=== PATIENT | female | born 1945 | race American Indian/Alaskan Native ===

== ENCOUNTER 2016-12-08 14:03 | Emergency (ER) | payer MEDICARE ==
[2016-12-08 14:16] VITALS: BMI 23.3
[2016-12-08 14:19] VITALS: BP 154/92; PULSE 75; RESP 16; TEMP 97.9; O2SAT 97
--- NOTE | 2016-12-08 15:12 | ED PDOC ---
Arrival/HPI - General Historian: Patient - History of Present Illness Time/Duration: < week Symptom Onset: Sudden Symptom Course: Unchanged <Candelario Parker - Last Filed: 12/08/16 18:19> <Rebeca Mattson - Last Filed: 12/08/16 20:58> - General Chief Complaint: Upper Extremity Problem/Injury Time Seen by Provider: 12/08/16 14:10 - History of Present Illness Narrative History of Present Illness (Text): 12/08/16 15:15 70 y/o female presenting s/p left 2nd digit trauma. Patient states a car door was closed on her left index finger 6 days ago. Patient states the finger is extremely painful with limited ROM. She states the pain and swelling has progressively worsened since the injury. She denies any other injuries including head or spine trauma. Patient denies fever or chills. (Candelario Parker) Past Medical History - Provider Review Nursing Documentation Reviewed: Yes - Infectious Disease Hx of Infectious Diseases: None - Cardiac Hx Cardiac Disorders: Yes Hx Hypertension: Yes - Pulmonary Hx Respiratory Disorders: Yes Hx Chronic Obstructive Pulmonary Disease (COPD): Yes - Neurological Hx Neurological Disorder: Yes Hx Alzheimer's Disease: Yes Hx Transient Ischemic Attacks (TIA): Yes (5 yrs ago) - HEENT Hx HEENT Disorder: Yes ([place] uses hearing aids, eyeglasses) - Renal Hx Renal Disorder: No - Endocrine/Metabolic Hx Endocrine Disorders: No - Hematological/Oncological Hx Blood Disorders: No - Integumentary Hx Dermatological Disorder: No - Musculoskeletal/Rheumatological Hx Musculoskeletal Disorders: Yes Hx Arthritis: Yes - Gastrointestinal Hx Gastrointestinal Disorders: No - Genitourinary/Gynecological Hx Genitourinary Disorders: No - Psychiatric Hx Psychophysiologic Disorder: No Hx Substance Use: No <Candelario Parker - Last Filed: 12/08/16 18:19> Family/Social History - Physician Review Nursing Documentation Reviewed: Yes Family/Social History: Unknown Family HX Smoking Status: Never Smoked Hx Alcohol Use: No Hx Substance Use: No <Candelario Parker - Last Filed: 12/08/16 18:19> Allergies/Home Meds <Candelario Parker - Last Filed: 12/08/16 18:19> <Rebeca Mattson - Last Filed: 12/08/16 20:58> Allergies/Adverse Reactions: Allergies Unobtainable Allergy (Verified 12/08/16 14:16) Review of Systems - Physician Review All systems were reviewed & negative as marked: Yes - Review of Systems Musculoskeletal: Other (traumatic injury to left distal finger ) Skin: absent: Skin Lesions, Laceration <Candelario Parker - Last Filed: 12/08/16 18:19> Physical Exam Vital Signs Reviewed: Yes Temperature: Afebrile Blood Pressure: Normal Pulse: Regular Respiratory Rate: Normal Appearance: Positive for: Well-Appearing Pain Distress: None Mental Status: Positive for: Alert and Oriented X 3 - Systems Exam Head: Present: Atraumatic, Normocephalic Pupils: Present: PERRL Extroacular Muscles: Present: EOMI Conjunctiva: Present: Normal Mouth: Present: Moist Mucous Membranes Pharnyx: Present: Normal Neck: Present: Normal Range of Motion Respiratory/Chest: Present: Clear to Auscultation, Good Air Exchange. No: Respiratory Distress Cardiovascular: Present: Regular Rate and Rhythm, Normal S1, S2 Abdomen: Present: Tenderness, Normal Bowel Sounds. No: Distention Upper Extremity: Present: Other (deformed, medically deviated, tender DIP joint left 2nd digit ). No: Cyanosis, Edema Lower Extremity: Present: Normal Inspection, Edema Neurological: Present: GCS=15, CN II-XII Intact Skin: Present: Warm, Dry. No: Rashes Psychiatric: Present: Alert, Oriented x 3, Normal Insight, Normal Concentration <Candelario Parker - Last Filed: 12/08/16 18:19> Vital Signs Temp Pulse Resp BP Pulse Ox 12/08/16 14:18 97.9 F 75 16 154/92 H 97 Medical Decision Making <Candelario Parker - Last Filed: 12/08/16 18:19> <Rebeca Mattson Y - Last Filed: 12/08/16 20:58> ED Course and Treatment: 12/08/16 15:13 70 y/o female presenting s/p trauma to left distal 2nd digit. PIP joint is medially deviated with tenderness and subungal hematoma. Will r/o fracture vs ligamentous injury. - will xray hand - reassess (Candelario Parker) 12/08/16 20:56 subungual hematoma drained without complication. L hand-second digit-neurologically intact. radial pulse 2+. normal color and normal Rom. dc home w keflex her primary doctro dr clancy made aware of plan and needs wound check in 2 days. transportation arranged for pt 12/08/16 20:57 12/08/16 20:58 (Rebeca Mattson) - RAD Interpretation Radiology Orders: 12/08/16 15:24 HAND LEFT 2ND DIGIT (FINGER) [RAD] Stat - Medication Orders Current Medication Orders: Discontinued Medications Acetaminophen (Tylenol 325mg Tab) 650 mg PO STAT STA Stop: 12/08/16 15:53 Last Admin: 12/08/16 16:24 Dose: 650 MG MAR Pain/Vitals Document 12/08/16 16:24 SE (Rec: 12/08/16 16:24 SE [id number]) Pain Reassessment Is This A Pain ReAssessment? No Sleep Is patient sleeping during reassessment? No Presence of Pain Presence of Pain Yes Cephalexin Monohydrate (Keflex) 500 mg PO STAT STA PRN Reason: Protocol Stop: 12/08/16 18:00 Last Admin: 12/08/16 18:37 Dose: 500 MG Disposition/Present on Arrival - Present on Arrival Any Indicators Present on Arrival: No History of DVT/PE: No History of Uncontrolled Diabetes: No Urinary Catheter: No History of Decub. Ulcer: No History Surgical Site Infection Following: None - Disposition Have Diagnosis and Disposition been Completed?: Yes Disposition Time: 18:19 <Candelario Parker - Last Filed: 12/08/16 18:19> - Present on Arrival Any Indicators Present on Arrival: No History of DVT/PE: No History of Uncontrolled Diabetes: No Urinary Catheter: No History of Decub. Ulcer: No - Disposition Have Diagnosis and Disposition been Completed?: Yes Disposition Time: 15:20 Patient Plan: Discharge <TwilaRebeca Nguyen - Last Filed: 12/08/16 20:58> - Disposition Diagnosis: Subungual hematoma of finger of left hand Disposition: HOME/ ROUTINE Condition: STABLE Discharge Instructions (ExitCare): Crush Injury (ED) Additional Instructions: Please see your family doctor within 2 days. You are given a new antibiotic called Keflex. Please take 1 table twice a day for 7 days. If your symptoms worsen please call your family physician or come to the emergency room. Prescriptions: Cephalexin [Keflex] 500 mg PO Q12 #14 capsule Acetaminophen [Tylenol 325mg tab] 650 mg PO Q6H PRN #20 tab PRN Reason: mild pain Referrals: Parish Clancy MD [Primary Care Provider] - Follow up with primary Lani Espinoza MD [Staff Provider] - Follow up with primary
--- NOTE | 2016-12-08 16:13 | RAD ---
PROCEDURE: Left 2nd digit dated 12/09/2015 PA view of the left hand and 2 additional cone-down views left 2nd finger performed. HISTORY: injury COMPARISON: None. FINDINGS: BONES: The current study reveals no definitive radiographic evidence of acute displaced fracture nor dislocation. The osseous structures appear intact. Moderate degenerate changes DIP joint 2nd finger consistent with primary osteoarthritis with marginal osteophyte formation. There is also slight ulnar subluxation of the distal phalanx. There also mild degenerative changes of the DIP joint left thumb and to a lesser degree remaining 3rd 4th and 5th fingers. JOINTS: Normal. No osteoarthritic changes. SOFT TISSUES: Normal. OTHER FINDINGS: None. IMPRESSION: Primary osteoarthritis changes of the DIP joints most notably affecting the 2nd and to a lesser degree 1st and less so the remaining digits. No acute fracture seen.
== END 2016-12-08 18:40 | disposition home or self-care (01) ==
LOC: ED 14:03
DX: S60.022A Contusion of left index finger without damage to nail, initial encounter (principal); W22.8XXA Striking against or struck by other objects, initial encounter; I10 Essential (primary) hypertension

== ENCOUNTER 2018-03-21 13:43 | Inpatient (IN) | payer MEDICARE ==
[2018-03-21 14:38] VITALS: BMI 22.8
--- NOTE | 2018-03-21 15:44 | ED PDOC ---
"Arrival/HPI - General Chief Complaint: Altered Mental Status Time Seen by Provider: 03/21/18 15:01 Historian: Patient, Family - History of Present Illness Narrative History of Present Illness (Text): 03/21/18 15:53 72yr old female presents today brought in by her [facility] friend after having outpatient MRI and outpatient EEG. Patient with a history of dementia was scheduled today for outpatient MRI and EEG by her neurologist for further evaluation of her dementia. Patient's friend states that she last saw the patient well last night at 7 PM and today she noticed she was a little drowsy but took her to her outpatient MRI and EEG appointments. After those appointments were completed she brought the patient into emergency room for evaluation of her lethargy. pt denies any pain. pt denies headaches. pt states she feels tired. pt denies abdominal pain. no fever/chills. no other complaints. Past Medical History - Provider Review Nursing Documentation Reviewed: Yes - Travel History Have you recently traveled outside [place] w/in the past 3 mons?: No - Infectious Disease Hx of Infectious Diseases: None - Cardiac Hx Cardiac Disorders: Yes Hx Hypertension: Yes - Pulmonary Hx Respiratory Disorders: Yes Hx Chronic Obstructive Pulmonary Disease (COPD): Yes - Neurological Hx Neurological Disorder: Yes Hx Alzheimer's Disease: Yes Hx Transient Ischemic Attacks (TIA): Yes (5 yrs ago) - HEENT Hx HEENT Disorder: Yes ([facility] uses hearing aids, eyeglasses) - Renal Hx Renal Disorder: No - Endocrine/Metabolic Hx Endocrine Disorders: No - Hematological/Oncological Hx Blood Disorders: No - Integumentary Hx Dermatological Disorder: No - Musculoskeletal/Rheumatological Hx Musculoskeletal Disorders: Yes Hx Arthritis: Yes - Gastrointestinal Hx Gastrointestinal Disorders: No - Genitourinary/Gynecological Hx Genitourinary Disorders: No - Psychiatric Hx Psychophysiologic Disorder: No Hx Substance Use: No - Anesthesia Hx Anesthesia: No (unknown) Family/Social History - Physician Review Nursing Documentation Reviewed: Yes Family/Social History: Unknown Family HX Smoking Status: Never Smoked Hx Alcohol Use: No Hx Substance Use: No Allergies/Home Meds Allergies/Adverse Reactions: Allergies No Known Allergies Allergy (Verified 03/21/18 14:40) Home Medications: Home Meds Medication Instructions Recorded Confirmed Metoprolol Succinate XL [Toprol XL] 25 mg PO DAILY 07/18/17 03/21/18 Pravastatin Sodium [Pravachol] 40 mg PO DAILY 07/18/17 07/18/17 amLODIPine [Norvasc] 5 mg PO DAILY 07/18/17 07/18/17 Albuterol 0.5% Inhal Antonieta (2.5 03/21/18 mg/0.5 ml) UD Anoro Ellipta 62.5-25 Mcg INH 62.5 inh INH DAILY 03/21/18 03/21/18 Aspirin 81 mg PO DAILY 03/21/18 03/21/18 Calcium 600 + Vit D Tablet 600 mg PO BID 03/21/18 03/21/18 Exelon 9.5 mg/24 hr Patch 9.5 patch TOP DAILY 03/21/18 03/21/18 Ferrous Sulfate 240 mg PO DAILY 03/21/18 03/21/18 Namenda Xr 28 mg PO DAILY 03/21/18 03/21/18 Nasonex 50 mcg BID 03/21/18 03/21/18 Nexium 40 mg PO DAILY 03/21/18 03/21/18 Review of Systems - Review of Systems Constitutional: Fatigue. absent: Fevers Respiratory: absent: SOB, Cough Cardiovascular: absent: Chest Pain, Palpitations Gastrointestinal: absent: Abdominal Pain, Nausea, Vomiting Genitourinary Female: absent: Dysuria, Frequency, Hematuria Musculoskeletal: absent: Arthralgias, Back Pain, Neck Pain Skin: absent: Rash, Pruritis Neurological: absent: Headache, Dizziness Psychiatric: absent: Anxiety, Depression Physical Exam Vital Signs Reviewed: Yes Vital Signs Temp Pulse Resp BP Pulse Ox 03/21/18 19:33 98.9 F 69 18 99 03/21/18 14:40 78 18 99 03/21/18 14:33 99.0 F 76 18 121/74 98 Temperature: Afebrile Blood Pressure: Normal Pulse: Regular Respiratory Rate: Normal Appearance: Positive for: Well-Appearing, Non-Toxic, Comfortable Pain Distress: None Mental Status: Positive for: Lethargic, other (alert) Finger Stick Blood Glucose: 102 - Systems Exam Head: Present: Atraumatic Mouth: Present: Moist Mucous Membranes Neck: Present: Normal Range of Motion Respiratory/Chest: Present: Clear to Auscultation, Good Air Exchange. No: Respiratory Distress, Accessory Muscle Use Cardiovascular: Present: Regular Rate and Rhythm, Normal S1, S2. No: Murmurs Abdomen: No: Tenderness, Distention, Peritoneal Signs, Rebound, Guarding Back: Present: Normal Inspection Upper Extremity: Present: Normal Inspection, Normal ROM Lower Extremity: Present: Normal Inspection, Normal ROM Neurological: Present: GCS=15, Speech Normal Skin: Present: Warm, Dry, Normal Color. No: Rashes Psychiatric: Present: Alert, Lethargic Medical Decision Making ED Course and Treatment: pt is alert but drowsy; stable vitals. denies any complaints. pt last know well at 7Pm last night. pt had outpatient MRI -FINDINGS: HEMORRHAGE: None DWI: There are 2 small foci of restricted diffusion in the right cerebellar hemisphere. BRAIN PARENCHYMA: There are severe chronic microangiopathic changes. There is subtle FLAIR signal abnormality corresponding to the foci of restricted diffusion in the right cerebellar hemisphere. There is an old lacunar infarction in the left cerebellar hemisphere. There is no mass, mass effect or abnormal extra-axial fluid collection. The midline sagittal structures are normal. VENTRICLES: There is mild age-related global parenchymal volume loss and proportionate enlargement of the ventricles and cortical sulci. There is a cavum septum pellucidum. CRANIUM: There is normal bone marrow signal pattern. There is mild hyperostosis frontalis interna. ORBITS: Grossly unremarkable. PARANASAL SINUSES/MASTOIDS: There is moderate polypoid mucosal thickening in the left sphenoid chamber. VASCULAR SYSTEM: There are normal signal voids in the larger intracranial arteries. OTHER FINDINGS: None. IMPRESSION: 1. Two small foci of acute infarction in the right cerebellar hemisphere. 2. Old lacunar infarction in the left cerebellar hemisphere. 3. Severe chronic microangiopathic changes and mild age-related global parenchymal volume loss. 03/21/18 15:35 baseline stroke score; 3. pt seen and evaluated by IMM. code stroke called. 03/21/18 15:[address] Rivers will given ASA and add MRA of head and neck and NOT cta due to questionable history of renal problems. NS at 100cc/hr and monitor BP. cbc: wnl cmp: wnl INR; trop: wnl UA + nitrates, + leukocytes EKG: Normal sinus rhythm at 77 bpm normal axis normal intervals no ST elevations blood and urine cultures pending. case was discussed with dr. wyatt the patients neurologist. will keep dr. Rivers on consult. pt started on rocephin for UTI. pt of dr. demarcus clancy; case discussed with dr. londono; accepts admission to tele for stroke and UTI impression; stroke, UTI admit to tele. 03/21/18 20:07 pt did not have MRA of head and neck as MRI was unavailable; i spoke again with dr. rivers. advised him of normal GFR; he advised changing exam to CTA of head and neck. 03/22/18 00:33 cta head and neck; FINDINGS: Right internal carotid artery: Calcific plaque at the intracranial ICAs without significant hemodynamic compromise. Intracranial segment is patent with no significant stenosis. No aneurysm. Right anterior cerebral artery: Unremarkable. No occlusion or significant stenosis. No aneurysm. Right middle cerebral artery: Unremarkable. No occlusion or significant stenosis. No aneurysm. Right posterior cerebral artery: Unremarkable. No occlusion or significant stenosis. No aneurysm. Right vertebral artery: Unremarkable as visualized. Left internal carotid artery: See above. Left anterior cerebral artery: Unremarkable. No occlusion or significant stenosis. No aneurysm. Left middle cerebral artery: Unremarkable. No occlusion or significant stenosis. No aneurysm. Left posterior cerebral artery: Unremarkable. No occlusion or significant stenosis. No aneurysm. Left vertebral artery: Unremarkable as visualized. [facility] | Preliminary Radiology Report Page 2 of 3 Basilar artery: Unremarkable as visualized. IMPRESSION: No high-grade stenosis, occlusion, thromboembolic disease, or aneurysm involving the intracranial arterial vasculature. EXAM: CT Angiography Neck With Intravenous Contrast CLINICAL HISTORY: 72 years old, female; Signs and symptoms; Weakness; Additional info: Stroke TECHNIQUE: Axial computed tomographic angiography images of the neck with intravenous contrast using CT angiography protocol. All CT scans at this facility use at least one of these dose optimization techniques: automated exposure control; mA and/or kV adjustment per patient size (includes targeted exams where dose is matched to clinical indication); or iterative reconstruction. MIP reconstructed images were created and reviewed. Coronal and sagittal reformatted images were created and reviewed. CONTRAST: 100 mL of OMNI 350 administered intravenously. 100 mL of OMNI 350 administered intravenously. COMPARISON: CT - HEAD W/O CONTRAST 2017-07-18 13:28 FINDINGS: VASCULATURE: Right common carotid artery: Unremarkable. No significant stenosis. No dissection or occlusion. Right internal carotid artery: Calcific plaque at the carotid bulbs without significant hemodynamic compromise. Extracranial segment is patent with no significant stenosis. No dissection or occlusion. Right external carotid artery: Unremarkable. No occlusion. Right vertebral artery: Unremarkable. No significant stenosis. No dissection or occlusion. Left common carotid artery: Unremarkable. No significant stenosis. No dissection or occlusion. Left internal carotid artery: See above. Left external carotid artery: Unremarkable. No occlusion. Left vertebral artery: Calcified plaque at the origin of the left vertebral artery results in mild focal stenosis. No dissection or occlusion. NECK: Bones/joints: No acute fracture. No dislocation. Soft tissues: Unremarkable as visualized. Heart: Extensive coronary artery calcifications. CAROTID STENOSIS REFERENCE USING NASCET CRITERIA: % ICA stenosis = (1 - narrowest ICA diameter/diameter of distal cervical ICA) x 100. Mild - <50% stenosis. Moderate - 50-69% stenosis. Severe - 70-94% stenosis. Near occlusion - 95-99% stenosis. Occluded - 100% stenosis. IMPRESSION: No high-grade stenosis, occlusion, or dissection involving the cervical arterial vasculature. - Lab Interpretations Lab Results: 03/21/18 15:45 03/21/18 15:45 Lab Results 03/21/18 17:11: Urine Color Yellow, Urine Appearance Clear, Urine pH 6.5, Ur Specific [place] 1.015, Urine Protein Negative, Urine Glucose (UA) Negative, Urine Ketones Negative, Urine Blood Trace-intact H, Urine Nitrate Positive H, Urine Bilirubin Negative, Urine Urobilinogen 0.2, Ur Leukocyte Esterase Trace H , Urine RBC 5 - 10, Urine WBC 5 - 10, Ur Epithelial Cells 10 - 12 03/21/18 15:45: Hemoglobin A1c 6.0 03/21/18 15:45: pO2 56 H, VBG pH 7.37, VBG pCO2 42.0, VBG HCO3 24.3, VBG Total CO2 25.6, VBG O2 Sat (Calc) 93.2 H, VBG Base Excess -1.1 L, VBG Potassium 3.9, Sodium 146.0, Chloride 115.0 H, Glucose 103, Lactate 0.8, FiO2 21.0, Venous Blood Potassium 3.9 03/21/18 15:45: PT 13.3 H, INR 1.16 H, APTT 24.6 L 03/21/18 15:45: WBC 6.9 D, RBC 4.56, Hgb 14.6, Hct 43.2, MCV 94.7, MCH 32.0, MCHC 33.8, RDW 13.9, Plt Count 158, MPV 9.7, Gran % 52.3, Lymph % (Auto) 37.6 H , [place] % (Auto) 9.3 H, Eos % (Auto) 0.4 L, Baso % (Auto) 0.4, Gran # 3.59, Lymph # (Auto) 2.6, [place] # (Auto) 0.6, Eos # (Auto) 0.0, Baso # (Auto) 0.03 03/21/18 15:45: Sodium 151 H, Chloride 114 H, Potassium 3.9, Carbon Dioxide 24, Anion Gap 17, BUN 22 H, Creatinine 0.8, Est GFR ( Amer) > 60, Est GFR ( Non-Af Amer) > 60, Random Glucose 100, Calcium 9.7, Total Bilirubin 0.7, AST 40 H, ALT 42, Alkaline Phosphatase 114, Lactate Dehydrogenase 633, Total Creatine Kinase 70, Troponin I < 0.01, Total Protein 7.5, Albumin 4.4, Globulin 3.1, Albumin/Globulin Ratio 1.4, Triglycerides 75, Cholesterol 160, LDL Cholesterol Direct 74, HDL Cholesterol 69 H - RAD Interpretation Radiology Orders: 03/21/18 15:09 CHEST PORTABLE [RAD] Stat - Medication Orders Current Medication Orders: Acetaminophen (Tylenol 325mg Tab) 325 mg PO Q6 PRN PRN Reason: Pain, Mild (1-3) Amlodipine Besylate (Norvasc) 5 mg PO DAILY [facility] Aspirin (Aspirin Chewable) 81 mg PO DAILY [facility] Famotidine (Pepcid) 20 mg IVP Q12 ABI Last Admin: 03/21/18 21:33 Dose: 20 mg IVP Administration Document 03/21/18 21:33 [facility] (Rec: 03/21/18 21:33 [facility] [id number]) Charges for Administration # of IVP Administrations 1 Sodium Chloride (Sodium Chloride 0.9%) 1,000 mls @ 100 mls/hr IV .Q10H ABI Last Admin: 03/21/18 16:19 Dose: 100 mls/hr eMAR Start Stop Document 03/21/18 16:19 [email or web address] (Rec: 03/21/18 16:19 [email or web address] [id number]) Intravenous Solution Start Date 03/21/18 Start Time 16:19 End Date 03/21/18 Discontinued Medications Aspirin (Aspirin) 325 mg PO STAT STA Stop: 03/21/18 15:50 Last Admin: 03/21/18 16:12 Dose: 325 mg Ceftriaxone Sodium (Rocephin 1 Gram Ivpb) 1 gm in 100 mls @ 200 mls/hr IVPB STAT STA PRN Reason: Protocol Stop: 03/21/18 18:24 Last Admin: 03/21/18 18:01 Dose: 200 mls/hr eMAR Start Stop Document 03/21/18 18:01 [email or web address] (Rec: 03/21/18 18:05 [email or web address] [id number]) Intravenous Solution Start Date 03/21/18 Start Time 18:05 End Date 03/21/18 NIHSS Scale ([place]) Time Performed: 15:15 - How Severe is the Stoke Baseline Level of Consciousness: 1=Drowsy LOC to Questions: 2=Neither correct LOC to commands: 0=Obeys both correctly Best Gaze: 0=Normal Visual: 0=No visual loss Facial: 0=Normal Motor Arm - Left: 0=No drift Motor Arm - Right: 0=No drift Motor Leg - Left: 0=No drift Motor Leg - Right: 0=No drift Limb Ataxia: 0=Absent Sensory: 0=Normal Best Language: 0=No aphasia Dysarthia: 0=Normal articulation Extinction & Inattention (Neglect): 0=Normal, no object Score: 3 Risk Level: Minor Stroke Risk rTPA Inclusion/Exclusion - Refusal of Treatment Patient Refused Treatment: No - Inclusion Criteria for Altepase Patient is 18 years or Older: Yes The Clinical Diagnosis of Ischemic Stroke That is Causing a Potentially Disabling Neurological Deficit: Yes Time of Onset is Well Established to be Less Than 270 Minute Before Treatment Would Begin: No Risk/Benefit Discussed With Patient/Family Member Present: No Disposition/Present on Arrival - Present on Arrival Any Indicators Present on Arrival: No History of DVT/PE: No History of Uncontrolled Diabetes: No Urinary Catheter: No History of Decub. Ulcer: No History Surgical Site Infection Following: None - Disposition Have Diagnosis and Disposition been Completed?: Yes Diagnosis: Stroke, Urinary tract infection Disposition: HOSPITALIZED Disposition Time: 18:05 Patient Plan: Admission Condition: SERIOUS"
[2018-03-21 16:11] LABS: VENOUS BLOOD GAS BASE EXCESS -1.1 mmol/L (0.0-2.0); VENOUS BLOOD GAS PO2 56 mm/Hg (30-55); VENOUS BLOOD PH 7.37 (7.32-7.43)
[2018-03-21 16:14] LABS: BASO # 0.03 K/mm3 (0.0-2.0); BASO % 0.4 % (0.0-3.0); EOS % 0.4 % (1.5-5.0); GRAN # 3.59 (1.4-6.5); GRAN % 52.3 % (50.0-68.0); HEMOGLOBIN 14.6 g/dL (12.0-16.0); LYMPH # 2.6 (1.2-3.4); LYMPH % 37.6 % (22.0-35.0); MEAN CELL VOLUME 94.7 fl (80.0-105.0); MEAN CORPUSCULAR HGB CONC 33.8 g/dl (31.0-37.0); MEAN PLATELET VOLUME 9.7 fl (7.0-11.0); MONO # 0.6 (0.1-0.6); MONO % 9.3 % (1.0-6.0); RBC 4.56 10^6/uL (3.5-6.1); RED CELL DISTRIBUTION WIDTH 13.9 % (11.5-14.5); WHITE BLOOD COUNT 6.9 10^3/ul (4.5-11.0)
[2018-03-21] MEDS: Sodium Chloride 0.9% 1,000 ML IV SCH (16:19)
[2018-03-21 16:24] LABS: ALB/GLOB RATIO 1.4 (1.1-1.8); ALBUMIN 4.4 g/dL (3.0-4.8); ALT/SGPT 42 U/L (7-56); AST/SGOT 40 U/L (14-36); BLOOD UREA NITROGEN 22 mg/dL (7-21); CALCIUM 9.7 mg/dL (8.4-10.5); GFR AFRICAN-AMERICAN > 60; GFR NON-AFRICAN AMERICAN > 60; HDL CHOLESTEROL 69 mg/dL (29-60)
--- NOTE | 2018-03-21 16:24 | RAD ---
HISTORY: weakness COMPARISON: 07/18/2017 FINDINGS: LUNGS: No active pulmonary disease. PLEURA: No significant pleural effusion identified, no pneumothorax apparent. CARDIOVASCULAR: Probable top-normal heart size OSSEOUS STRUCTURES: No significant abnormalities. VISUALIZED UPPER ABDOMEN: Normal. OTHER FINDINGS: None. IMPRESSION: No active disease. No interval pathology noted.
[2018-03-21 16:42] LABS: INR 1.16 (0.93-1.08); PARTIAL THROMBOPLASTIN TIME 24.6 Seconds (25.1-36.5); PROTHROMBIN TIME 13.3 SECONDS (9.4-12.5)
[2018-03-21 16:55] LABS: LDL CHOLESTEROL 74 mg/dL (0-129)
[2018-03-21 16:58] LABS: TROPONIN I < 0.01 ng/mL
[2018-03-21 17:51] LABS: PH,URINE 6.5 (4.7-8.0); URINE BILIRUBIN NEGATIVE (NEGATIVE); URINE BLOOD TRACE-INTACT (NEGATIVE); URINE GLUCOSE (UA) NEGATIVE (NEGATIVE); URINE LEUKOCYTE ESTERASE TRACE Leu/uL (NEGATIVE); URINE PROTEIN NEGATIVE mg/dL (<30 mg/dL); URINE UROBILINOGEN 0.2 E.U./dL (<1 E.U./dL)
[2018-03-21 17:54] LABS: URINE APPEARANCE CLEAR (CLEAR); URINE COLOR YELLOW (YELLOW)
[2018-03-21] MEDS ORDERED: cefTRIAXone 1 gm 1 GM/100 ML BAG IVPB STA (17:55)
--- NOTE | 2018-03-21 19:19 | CP.PCM.HP ---
<Saw Dudley - Last Filed: 03/21/18 21:05> History of Present Illness - History of Present Illness History of Present Illness: This is a 72 y o female PMhx dementia, HTN, COPD, arthritis, TIA 5 y ago, who was brought in by friend from outpatient MRI and EEG for AMS. Per friend, pt's last known normal was at 7 PM last night, and noticed that pt appeared "drowsy" this morning, but still took her to MRI and EEG (as per neurologist for work-up of dementia). Pt was brought to ED by friend for eval of lethargy. Pt denies musculoskeletal pain, headaches, or abdominal pain. Pt a poor historian due to hx of dementia. Otherwise pt denies any acute complaints. Present on Admission - Present on Admission Any Indicators Present on Admission: No History of DVT/PE: No History of Uncontrolled Diabetes: No Urinary Catheter: No Decubitus Ulcer Present: No History Surgical Site Infection Following: None Review of Systems - Review of Systems Systems not reviewed;Unavailable: Dementia Past Patient History - Infectious Disease Hx of Infectious Diseases: None - Tetanus Immunizations Tetanus Immunization: Unknown - Past Medical History & Family History Past Medical History?: Yes - Past Social History Smoking Status: Never Smoked - CARDIAC Hx Cardiac Disorders: Yes Hx Hypertension: Yes - PULMONARY Hx Respiratory Disorders: Yes Hx Chronic Obstructive Pulmonary Disease (COPD): Yes - NEUROLOGICAL Hx Neurological Disorder: Yes Hx Alzheimer's Disease: Yes Hx Transient Ischemic Attacks (TIA): Yes (5 yrs ago) - HEENT Hx HEENT Problems: Yes ([place] uses hearing aids, eyeglasses) - RENAL Hx Chronic Kidney Disease: No - ENDOCRINE/METABOLIC Hx Endocrine Disorders: No - HEMATOLOGICAL/ONCOLOGICAL Hx Blood Disorders: No - INTEGUMENTARY Hx Dermatological Problems: No - MUSCULOSKELETAL/RHEUMATOLOGICAL Hx Musculoskeletal Disorders: Yes Hx Arthritis: Yes - GASTROINTESTINAL Hx Gastrointestinal Disorders: No - GENITOURINARY/GYNECOLOGICAL Hx Genitourinary Disorders: No - PSYCHIATRIC Hx Psychophysiologic Disorder: No Hx Substance Use: No - SURGICAL HISTORY Hx Surgeries: No - ANESTHESIA Hx Anesthesia: No (unknown) Meds Allergies/Adverse Reactions: Allergies Allergy/AdvReac Type Severity Reaction Status Date / Time No Known Allergies Allergy Verified 03/21/18 14:40 Physical Exam - Constitutional Appears: No Acute Distress, Confused - Head Exam Head Exam: ATRAUMATIC, NORMOCEPHALIC - Eye Exam Eye Exam: EOMI, Normal appearance, PERRL Pupil Exam: NORMAL ACCOMODATION - ENT Exam ENT Exam: Mucous Membranes Moist, Normal Exam, Normal Oropharynx - Neck Exam Neck exam: Positive for: Full Rom, Normal Inspection Additional comments: No carotid bruits auscultated - Respiratory Exam Respiratory Exam: Clear to Auscultation Bilateral, NORMAL BREATHING PATTERN - Cardiovascular Exam Cardiovascular Exam: REGULAR RHYTHM, +S1, +S2 - GI/Abdominal Exam GI & Abdominal Exam: Normal Bowel Sounds, Soft - Extremities Exam Extremities exam: Positive for: normal capillary refill, normal inspection, pedal pulses present - Neurological Exam Neurological exam: Alert, Altered Additional comments: Pt has dementia, unable to cooperate with following commands on neurologic exam , motor and sensory function intact - Psychiatric Exam Psychiatric exam: Flat Affect - Skin Skin Exam: Dry, Intact, Normal Color, Warm Results - Vital Signs Recent Vital Signs: Last Vital Signs Temp 99.0 F 03/21/18 14:33 Pulse 78 03/21/18 14:40 Resp 18 03/21/18 14:40 BP 121/74 03/21/18 14:33 Pulse Ox 99 03/21/18 14:40 - Labs Result Diagrams: 03/21/18 15:45 03/21/18 15:45 - EKG Data EKG Interpreted by: ER Physician EKG shows normal: Sinus rhythm Rate: Normal Assessment & Plan - Assessment and Plan (Free Text) Assessment: 72 y o female PMhx dementia, HTN, COPD, arthritis, TIA 5 y ago, presents to ED with AMS and lethargy, with last known normal 7 PM last night. Code Stroke called in ED. Outpatient MRI revealed 2 small foci of acute infarction in R cerebellar hemisphere, and old lacunar infarction in L cerebellar hemisphere. Pt here for stroke work-up. U/a also demonstrated positive leuk esterase, pt being treated for UTI. Plan: AMS 2/2 to stroke Pt has hx dementia, hx TIA 5 y ago Pt was being w/u by neurologist as outpatient, had MRI and EEG done today Outpatient MRI findings: 2 small foci of acute infarction in the R cerebellar hemisphere, old lacunar infarction in L cerebellar hemisphere Code Stroke called in ED S/p ASA 325 mg in ED C/w ASA 81 mg daily Neurology consulted, f/u recs AM labs pending F/u CT head Fall precautions, neuro checks Pending PT, OT, speech and swallow evals UTI Pos leuk esterase in u/a C/w rocephin tx Monitor vitals Hx HTN BP stable C/w amlodipine 5 mg daily Monitor vitals GI ppx: Pepcid bid DVT ppx: SCDs, pharmacologic tx contraindicated Plan d/w attending Decision To Admit - Pt Status Changed To: Hospital Disposition Of: Inpatient Admission - Admit Certification Admit to Inpatient:: After my assessment, the patient will require hospitalization for at least two midnights. This is because of the severity of symptoms shown, intensity of services needed, and/or the medical risk in this patient being treated as an outpatient. - . Bed Request Type: Telemetry Admitting Physician: Rosalva Womack <Rosalva Womack - Last Filed: 03/23/18 06:47> Results - Vital Signs Recent Vital Signs: Last Vital Signs Temp 97.6 F 03/23/18 06:00 Pulse 82 03/23/18 06:00 Resp 18 03/23/18 06:00 BP 115/71 03/23/18 06:00 Pulse Ox 98 03/23/18 06:00 - Labs Result Diagrams: 03/22/18 06:00 03/22/18 06:00 Labs: Laboratory Results - last 24 hr 03/21/18 03/22/18 03/22/18 20:18 06:00 06:00 PT 13.8 H INR 1.20 H APTT 26.1 Sodium Potassium Chloride Carbon Dioxide Anion Gap BUN Creatinine Est GFR ( Amer) Est GFR (Non-Af Amer) POC Glucose (mg/dL) Random Glucose Calcium Phosphorus Magnesium Triglycerides Cholesterol LDL Cholesterol Direct HDL Cholesterol Vitamin B12 348 Urine Color Urine Appearance Urine pH Ur Specific [place] Urine Protein Urine Glucose (UA) Urine Ketones Urine Blood Urine Nitrate Urine Bilirubin Urine Urobilinogen Ur Leukocyte Esterase Urine RBC Urine WBC Ur Epithelial Cells Urine Bacteria Blood Type Confirm O NEGATIVE 03/22/18 03/22/18 03/22/18 06:00 07:10 07:30 PT INR APTT Sodium 147 Potassium 3.6 Chloride 114 H Carbon Dioxide 23 Anion Gap 14 BUN 14 Creatinine 0.7 Est GFR ( Amer) > 60 Est GFR (Non-Af Amer) > 60 POC Glucose (mg/dL) 84 Random Glucose 97 Calcium 8.9 Phosphorus 3.1 Magnesium 2.1 Triglycerides 58 Cholesterol 150 LDL Cholesterol Direct 76 HDL Cholesterol 53 Vitamin B12 Urine Color Urine Appearance Urine pH Ur Specific [place] Urine Protein Urine Glucose (UA) Urine Ketones Urine Blood Urine Nitrate Urine Bilirubin Urine Urobilinogen Ur Leukocyte Esterase Urine RBC Urine WBC Ur Epithelial Cells Urine Bacteria Blood Type Confirm 03/22/18 03/22/18 03/22/18 11:03 16:04 21:16 PT INR APTT Sodium Potassium Chloride Carbon Dioxide Anion Gap BUN Creatinine Est GFR ( Amer) Est GFR (Non-Af Amer) POC Glucose (mg/dL) 103 101 98 Random Glucose Calcium Phosphorus Magnesium Triglycerides Cholesterol LDL Cholesterol Direct HDL Cholesterol Vitamin B12 Urine Color Urine Appearance Urine pH Ur Specific Red[place] Urine Protein Urine Glucose (UA) Urine Ketones Urine Blood Urine Nitrate Urine Bilirubin Urine Urobilinogen Ur Leukocyte Esterase Urine RBC Urine WBC Ur Epithelial Cells Urine Bacteria Blood Type Confirm 03/23/18 06:10 PT INR APTT Sodium Potassium Chloride Carbon Dioxide Anion Gap BUN Creatinine Est GFR ( Amer) Est GFR (Non-Af Amer) POC Glucose (mg/dL) Random Glucose Calcium Phosphorus Magnesium Triglycerides Cholesterol LDL Cholesterol Direct HDL Cholesterol Vitamin B12 Urine Color Yellow Urine Appearance Clear Urine pH 6.5 Ur Specific Red[place] 1.020 Urine Protein Negative Urine Glucose (UA) Negative Urine Ketones Trace H Urine Blood Negative Urine Nitrate Negative Urine Bilirubin Negative Urine Urobilinogen 0.2 Ur Leukocyte Esterase Moderate H Urine RBC 0 - 2 Urine WBC 15 - 20 Ur Epithelial Cells 0 - 2 Urine Bacteria Rare Blood Type Confirm
[2018-03-22] MEDS: Sodium Chloride 0.9% 1,000 ML IV SCH (05:45)
[2018-03-22 06:29] LABS: HEMOGLOBIN 15.6 g/dL (12.0-16.0); MEAN CELL VOLUME 93.9 fl (80.0-105.0); MEAN CORPUSCULAR HEMOGLOBIN 31.9 pg (25.0-35.0); MEAN PLATELET VOLUME 9.7 fl (7.0-11.0); RBC 4.89 10^6/uL (3.5-6.1); RED CELL DISTRIBUTION WIDTH 13.5 % (11.5-14.5); WHITE BLOOD COUNT 5.6 10^3/ul (4.5-11.0)
[2018-03-22 06:46] LABS: INR 1.2 (0.93-1.08); PARTIAL THROMBOPLASTIN TIME 26.1 Seconds (25.1-36.5); PROTHROMBIN TIME 13.8 SECONDS (9.4-12.5)
[2018-03-22 06:57] LABS: LDL CHOLESTEROL 76 mg/dL (0-129)
[2018-03-22 07:04] LABS: BLOOD UREA NITROGEN 14 mg/dL (7-21); CALCIUM 8.9 mg/dL (8.4-10.5); GFR AFRICAN-AMERICAN > 60; GFR NON-AFRICAN AMERICAN > 60; HDL CHOLESTEROL 53 mg/dL (29-60)
--- NOTE | 2018-03-22 07:49 | CARD ---
APPROVED REPORT EKG Measurement Heart [id number] <Conclusion> Normal sinus rhythm Possible Left atrial enlargement Borderline ECG
--- NOTE | 2018-03-22 13:14 | CP.PCM.CON ---
History of Present Illness - History of Present Illness History of Present Illness: Neurology Consultation Note: Mrs. Jiménez is a 72-year-old woman with a past medical history of dementia, HTN, COPD, arthritis, TIA, who was brought in after MRI of the brain for outpatient work-up of encephalopathy revealed a small right cerebellar infarct. The patient's neurologist is Dr. Rehman and he had ordered the MRI and EEG. According to her friend, while she was going to get blood work, she had been increasingly confused and lethargic. She was last known normal at 7 PM the previous night. Labs demonstrated a UTI. I was called for neurological evaluation and recommended aspirin, Lipitor and vascular imaging (CTA of the head/neck), as well as telemetry and echocardiogram. Today, the patient is relatively asymptomatic and is at baseline according to her family. Review of Systems - Review of Systems All systems: reviewed and no additional remarkable complaints except Past Patient History - Infectious Disease Hx of Infectious Diseases: None - Tetanus Immunizations Tetanus Immunization: Unknown - Past Medical History & Family History Past Medical History?: Yes - Past Social History Smoking Status: Never Smoked - CARDIAC Hx Hypertension: Yes - PULMONARY Hx Chronic Obstructive Pulmonary Disease (COPD): Yes - NEUROLOGICAL Hx Neurological Disorder: Yes Hx Alzheimer's Disease: Yes Hx Transient Ischemic Attacks (TIA): Yes (5 yrs ago) - HEENT Hx HEENT Problems: Yes ([place] uses hearing aids, eyeglasses) - RENAL Hx Chronic Kidney Disease: No - ENDOCRINE/METABOLIC Hx Endocrine Disorders: No - HEMATOLOGICAL/ONCOLOGICAL Hx Blood Disorders: No - INTEGUMENTARY Hx Dermatological Problems: No - MUSCULOSKELETAL/RHEUMATOLOGICAL Hx Arthritis: Yes - GASTROINTESTINAL Hx Gastrointestinal Disorders: No - GENITOURINARY/GYNECOLOGICAL Hx Genitourinary Disorders: No - PSYCHIATRIC Hx Psychophysiologic Disorder: No Hx Substance Use: No - SURGICAL HISTORY Hx Surgeries: No - ANESTHESIA Hx Anesthesia: No (unknown) Meds Allergies/Adverse Reactions: Allergies Allergy/AdvReac Type Severity Reaction Status Date / Time No Known Allergies Allergy Verified 03/21/18 14:40 - Medications Medications: Current Medications Acetaminophen (Tylenol 325mg Tab) 325 mg PO Q6 PRN PRN Reason: Pain, Mild (1-3) Amlodipine Besylate (Norvasc) 5 mg PO DAILY [facility] Last Admin: 03/22/18 09:48 Dose: 5 mg Aspirin (Aspirin Chewable) 81 mg PO DAILY [facility] Last Admin: 03/22/18 09:48 Dose: 81 mg Atorvastatin Calcium (Lipitor) 40 mg PO DIN [facility] Famotidine (Pepcid) 20 mg IVP Q12 [facility] Last Admin: 03/22/18 09:48 Dose: 20 mg Sodium Chloride (Sodium Chloride 0.9%) 1,000 mls @ 100 mls/hr IV .Q10H [facility] Last Admin: 03/22/18 05:45 Dose: 100 mls/hr Physical Exam - Neurological Exam Neurological exam: Abnormal Gait, Alert, Altered, CN II-XII Intact, Normal Gait , Reflexes Normal Additional comments: Confused about place and time and does not know her age. No significant nystagmus noted and no ataxia noted. Her strength was symmetrical. Results - Vital Signs Recent Vital Signs: Last Vital Signs Temp 98.0 F 03/22/18 05:55 Pulse 78 03/22/18 09:48 Resp 18 03/22/18 09:00 BP 134/76 03/22/18 09:48 Pulse Ox 98 03/22/18 09:00 - Labs Result Diagrams: 03/22/18 06:00 03/22/18 06:00 Labs: Laboratory Results - last 24 hr 03/21/18 03/21/18 03/21/18 19:08 20:12 20:18 WBC RBC Hgb Hct MCV MCH MCHC RDW Plt Count MPV PT INR APTT Sodium Potassium Chloride Carbon Dioxide Anion Gap BUN Creatinine Est GFR ( Amer) Est GFR (Non-Af Amer) POC Glucose (mg/dL) Random Glucose Calcium Phosphorus Magnesium Triglycerides Cholesterol LDL Cholesterol Direct HDL Cholesterol Vitamin B12 348 TSH 3rd Generation 0.82 Blood Type O NEGATIVE Blood Type Confirm Antibody Screen Negative BBK History Checked No verified bt 03/22/18 03/22/18 03/22/18 06:00 06:00 06:00 WBC 5.6 RBC 4.89 Hgb 15.6 Hct 45.9 MCV 93.9 MCH 31.9 MCHC 34.0 RDW 13.5 Plt Count 126 MPV 9.7 PT 13.8 H INR 1.20 H APTT 26.1 Sodium Potassium Chloride Carbon Dioxide Anion Gap BUN Creatinine Est GFR ( Amer) Est GFR (Non-Af Amer) POC Glucose (mg/dL) Random Glucose Calcium Phosphorus Magnesium Triglycerides Cholesterol LDL Cholesterol Direct HDL Cholesterol Vitamin B12 TSH 3rd Generation Blood Type Blood Type Confirm O NEGATIVE Antibody Screen BBK History Checked 03/22/18 03/22/18 03/22/18 06:00 07:10 07:30 WBC RBC Hgb Hct MCV MCH MCHC RDW Plt Count MPV PT INR APTT Sodium 147 Potassium 3.6 Chloride 114 H Carbon Dioxide 23 Anion Gap 14 BUN 14 Creatinine 0.7 Est GFR ( Amer) > 60 Est GFR (Non-Af Amer) > 60 POC Glucose (mg/dL) 84 Random Glucose 97 Calcium 8.9 Phosphorus 3.1 Magnesium 2.1 Triglycerides 58 Cholesterol 150 LDL Cholesterol Direct 76 HDL Cholesterol 53 Vitamin B12 TSH 3rd Generation Blood Type Blood Type Confirm Antibody Screen BBK History Checked 03/22/18 11:03 WBC RBC Hgb Hct MCV MCH MCHC RDW Plt Count MPV PT INR APTT Sodium Potassium Chloride Carbon Dioxide Anion Gap BUN Creatinine Est GFR ( Amer) Est GFR (Non-Af Amer) POC Glucose (mg/dL) 103 Random Glucose Calcium Phosphorus Magnesium Triglycerides Cholesterol LDL Cholesterol Direct HDL Cholesterol Vitamin B12 TSH 3rd Generation Blood Type Blood Type Confirm Antibody Screen BBK History Checked Assessment & Plan (1) Stroke Assessment and Plan: The symptoms of the stroke were likely exacerbated by the UTI and baseline dementia; however, further work-up is needed. She is improved since the UTI is being treated. I recommend the followin. Telemetry 2. CTA of the head/neck 3. Fluids with NS at 100 mL/hr 4. Aspirin 81 mg daily 5. PT/OT eval and treatment. 6. Echocardiogram 7. Check HbA1c, B12, folate, vitamin D levels, homocysteine levels 8. Case management consult Thank you. Status: Acute Priority: High
--- NOTE | 2018-03-22 13:21 | CP.PCM.PN ---
<Sachin Hand Seven - Last Filed: 03/22/18 13:16> Subjective - Date & Time of Evaluation Date of Evaluation: 03/22/18 Time of Evaluation: 13:17 - Subjective Subjective: Medicine Progress Note: Dr. Hanna Patient seen and examined at bedside. No acute overnight events. Patient is pleasantly confused this morning but denies any complaints. Objective - Vital Signs/Intake and Output Vital Signs (last 24 hours): Temp Pulse Resp BP Pulse Ox 98.0 F 78 18 134/76 98 03/22/18 05:55 03/22/18 09:48 03/22/18 09:00 03/22/18 09:48 03/22/18 09:00 Intake and Output: 03/22/18 03/22/18 06:59 18:59 Intake Total 500 Output Total 0 Balance 500 - Medications Medications: Current Medications Acetaminophen (Tylenol 325mg Tab) 325 mg PO Q6 PRN PRN Reason: Pain, Mild (1-3) Amlodipine Besylate (Norvasc) 5 mg PO DAILY [facility] Last Admin: 03/22/18 09:48 Dose: 5 mg Aspirin (Aspirin Chewable) 81 mg PO DAILY [facility] Last Admin: 03/22/18 09:48 Dose: 81 mg Atorvastatin Calcium (Lipitor) 40 mg PO DIN [facility] Famotidine (Pepcid) 20 mg IVP Q12 [facility] Last Admin: 03/22/18 09:48 Dose: 20 mg Sodium Chloride (Sodium Chloride 0.9%) 1,000 mls @ 100 mls/hr IV .Q10H [facility] Last Admin: 03/22/18 05:45 Dose: 100 mls/hr - Labs Labs: 03/22/18 06:00 03/22/18 06:00 PT 13.8 SECONDS (9.4-12.5) H 03/22/18 06:00 INR 1.20 (0.93-1.08) H 03/22/18 06:00 APTT 26.1 Seconds (25.1-36.5) 03/22/18 06:00 - Constitutional Appears: Well - Head Exam Head Exam: ATRAUMATIC, NORMAL INSPECTION, NORMOCEPHALIC - Eye Exam Eye Exam: EOMI, Normal appearance, PERRL Pupil Exam: NORMAL ACCOMODATION, PERRL - ENT Exam ENT Exam: Mucous Membranes Moist, Normal Exam - Neck Exam Neck Exam: Full ROM, Normal Inspection. absent: Lymphadenopathy - Respiratory Exam Respiratory Exam: Clear to Ausculation Bilateral, NORMAL BREATHING PATTERN - Cardiovascular Exam Cardiovascular Exam: REGULAR RHYTHM, +S1, +S2. absent: Murmur - GI/Abdominal Exam GI & Abdominal Exam: Soft, Normal Bowel Sounds. absent: Tenderness - Extremities Exam Extremities Exam: Full ROM, Normal Capillary Refill, Normal Inspection. absent : Joint Swelling, Pedal Edema - Back Exam Back Exam: NORMAL INSPECTION - Neurological Exam Neurological Exam: Alert, Awake, CN II-XII Intact, Normal Gait, Oriented x3 - Psychiatric Exam Psychiatric exam: Normal Affect, Normal Mood - Skin Skin Exam: Dry, Intact, Normal Color, Warm Assessment and Plan - Assessment and Plan (Free Text) Assessment: 72 y o female PMhx dementia, HTN, COPD, arthritis, TIA 5 y ago, presents to ED with AMS and lethargy, with last known normal 7 PM last night. Code Stroke called in ED. Outpatient MRI revealed 2 small foci of acute infarction in R cerebellar hemisphere, and old lacunar infarction in L cerebellar hemisphere. Pt here for stroke work-up. U/a also demonstrated positive leuk esterase, pt being treated for UTI. Plan: AMS 2/2 to stroke Pt has hx dementia, hx TIA 5 y ago Pt was being w/u by neurologist as outpatient, had MRI and EEG done today Outpatient MRI findings: 2 small foci of acute infarction in the R cerebellar hemisphere, old lacunar infarction in L cerebellar hemisphere Code Stroke called in ED S/p ASA 325 mg in ED C/w ASA 81 mg daily Neurology consulted, f/u recs Fall precautions, neuro checks - Started on lipitor and given HHD today; swallow eval passed UTI Pos leuk esterase in u/a - will treat emprically with rocephin Monitor vitals, no SIRS criteria Hx HTN BP stable C/w amlodipine 5 mg daily Monitor vitals GI ppx: Pepcid bid DVT ppx: SCDs, pharmacologic tx contraindicated <Rolf Hanna - Last Filed: 03/22/18 13:44> Objective - Vital Signs/Intake and Output Vital Signs (last 24 hours): Temp Pulse Resp BP Pulse Ox 97.4 F L 84 20 125/72 98 03/22/18 12:00 03/22/18 12:00 03/22/18 12:00 03/22/18 12:00 03/22/18 09:00 Intake and Output: 03/22/18 03/22/18 06:59 18:59 Intake Total 500 Output Total 0 Balance 500 - Medications Medications: Current Medications Acetaminophen (Tylenol 325mg Tab) 325 mg PO Q6 PRN PRN Reason: Pain, Mild (1-3) Amlodipine Besylate (Norvasc) 5 mg PO DAILY [facility] Last Admin: 03/22/18 09:48 Dose: 5 mg Aspirin (Aspirin Chewable) 81 mg PO DAILY [facility] Last Admin: 03/22/18 09:48 Dose: 81 mg Atorvastatin Calcium (Lipitor) 40 mg PO DIN [facility] Famotidine (Pepcid) 20 mg IVP Q12 [facility] Last Admin: 03/22/18 09:48 Dose: 20 mg Sodium Chloride (Sodium Chloride 0.9%) 1,000 mls @ 100 mls/hr IV .Q10H [facility] Last Admin: 03/22/18 05:45 Dose: 100 mls/hr Ceftriaxone Sodium (Rocephin 1 Gram Ivpb) 1 gm in 100 mls @ 100 mls/hr IVPB DAILY [facility] PRN Reason: Protocol - Labs Labs: 03/22/18 06:00 03/22/18 06:00 PT 13.8 SECONDS (9.4-12.5) H 03/22/18 06:00 INR 1.20 (0.93-1.08) H 03/22/18 06:00 APTT 26.1 Seconds (25.1-36.5) 03/22/18 06:00 Attending/Attestation - Attestation I have personally seen and examined this patient.: Yes I have fully participated in the care of the patient.: Yes I have reviewed all pertinent clinical information, including history, physical exam and plan: Yes Notes (Text): 03/22/18 13:40 72 year old female with past medical history of dementia, hypertension and TIA who presented with AMS. Outpatient MRi was positive for 2 small foci of acute infarct in the right cerebellar hemisphere and old lacunar infarction in the left cerebellar hemisphere. CTA head/neck was done with pending results. Neurology evaluation and PT evaluation are requested. Echocardiogram is pending. Patient is on aspirin and statin. She is on antibiotics for possible UTI while awaiting UCx. Rolf Hanna MD Hospitalist.
[2018-03-22] MEDS: cefTRIAXone 1 gm 1 GM/100 ML BAG IVPB SCH (13:49)
[2018-03-23 06:23] LABS: PH,URINE 6.5 (4.7-8.0); URINE BILIRUBIN NEGATIVE (NEGATIVE); URINE BLOOD NEGATIVE (NEGATIVE); URINE GLUCOSE (UA) NEGATIVE (NEGATIVE); URINE LEUKOCYTE ESTERASE MODERATE Leu/uL (NEGATIVE); URINE PROTEIN NEGATIVE mg/dL (<30 mg/dL); URINE UROBILINOGEN 0.2 E.U./dL (<1 E.U./dL)
[2018-03-23 06:24] LABS: URINE APPEARANCE CLEAR (CLEAR); URINE COLOR YELLOW (YELLOW)
[2018-03-23 06:33] LABS: URINE BACTERIA RARE (NEG); URINE EPITHELIAL CELLS 0 - 2 /hpf (0-5); URINE RBC 0 - 2 /hpf (0-2); URINE WBC 15 - 20 /hpf (0-6)
--- NOTE | 2018-03-23 08:17 | CT ---
PROCEDURE: CT Angiography of the Brain and Neck. HISTORY: stroke COMPARISON: None available. TECHNIQUE: CT angiography of the intracranial and neck arteries was performed. Coronal and sagittal maximum intensity projection reformatted images were generated. Contrast Dose: Omnipaque 350, 100 cc Radiation dose:Total exam DLP = 527.36 mGy-cm. This CT exam was performed using one or more of the following dose reduction techniques: Automated exposure control, adjustment of the mA and/or kV according to patient size, and/or use of iterative reconstruction technique. FINDINGS: INTERNAL CEREBRAL ARTERIES: Atherosclerotic change identified at the bilateral cavernous ICA segments. The skull base, petrous, cavernous and supraclinoid segments are bilaterally widely patent. ANTERIOR CEREBRAL ARTERIES: Unremarkable. A1 and A2 segments are widely patent. Smaller distal branches unremarkable, as visualized. MIDDLE CEREBRAL ARTERIES: Unremarkable. M1 and M2 segments are widely patent. Perisylvian branches grossly symmetric. POSTERIOR CIRCULATION: Basilar Artery: Unremarkable. Distal Vertebral Arteries: Left dominant vertebrobasilar circulation with both distal vertebral arteries patent. Posterior Cerebral Arteries: Patent but hypoplastic left [employer] with normal appearing right [employer]. Posterior Inferior Cerebellar Arteries: Unremarkable. NECK CTA: Common Carotid arteries: The bilateral common carotid appear widely patent from their origins to their bifurcations with no significant stenosis appreciated. Mild atherosclerotic plaque seen at the bilateral carotid bulb regions. No evidence to suggest common carotid artery dissection. Internal Carotid arteries: No significant stenosis is appreciated throughout the cervical internal carotid artery segments bilaterally and there is no evidence of dissection either. External Carotid arteries: Appear unremarkable bilaterally. Vertebral arteries: The bilateral vertebral arteries appear normal in caliber from their origins to their junction with the basilar artery. No significant stenosis or definite pattern of dissection. ANEURYSM/ VASCULAR MALFORMATIONS: None. OTHER FINDINGS: Limited biapical pulmonary fibrosis including calcified pleural plaque. IMPRESSION: No occlusion or significant stenosis in CT Angiography of the Brain and Neck. Limited carotid atherosclerosis as discussed above.
[2018-03-23 08:31] LABS: BASO # 0.01 K/mm3 (0.0-2.0); BASO % 0.1 % (0.0-3.0); EOS # 0.3 (0.0-0.7); EOS % 3.8 % (1.5-5.0); GRAN # 5.77 (1.4-6.5); GRAN % 84.2 % (50.0-68.0); HEMOGLOBIN 16.1 g/dL (12.0-16.0); LYMPH # 0.5 (1.2-3.4); LYMPH % 6.6 % (22.0-35.0); MEAN CORPUSCULAR HEMOGLOBIN 32.1 pg (25.0-35.0); MEAN CORPUSCULAR HGB CONC 35.2 g/dl (31.0-37.0); MEAN PLATELET VOLUME 9.7 fl (7.0-11.0); MONO # 0.4 (0.1-0.6); MONO % 5.3 % (1.0-6.0); RBC 5.02 10^6/uL (3.5-6.1); WHITE BLOOD COUNT 6.9 10^3/ul (4.5-11.0)
[2018-03-23 08:42] LABS: ALB/GLOB RATIO 1.2 (1.1-1.8); ALBUMIN 3.8 g/dL (3.0-4.8); ALT/SGPT 41 U/L (7-56); AST/SGOT 29 U/L (14-36); BLOOD UREA NITROGEN 14 mg/dL (7-21); CALCIUM 9.1 mg/dL (8.4-10.5); GFR AFRICAN-AMERICAN > 60; GFR NON-AFRICAN AMERICAN > 60
[2018-03-23] MEDS: Sodium Chloride 0.9% 1,000 ML IV SCH ×2 (08:59→09:00)
[2018-03-23] MEDS: cefTRIAXone 1 gm 1 GM/100 ML BAG IVPB SCH (09:11)
[2018-03-23] MEDS ORDERED: ANORO ELLIPTA INH SCH (15:00)
[2018-03-23] MEDS ORDERED: NAMENDA 28 MG PO SCH (15:00)
[2018-03-23] MEDS ORDERED: MEMANTINE PO SCH (15:00)
[2018-03-23] MEDS ORDERED: Metoprolol Succinate 25 mg XL Tab PO SCH (15:00)
--- NOTE | 2018-03-23 15:16 | CP.PCM.PN ---
<PeaceSachin - Last Filed: 03/23/18 15:12> Subjective - Date & Time of Evaluation Date of Evaluation: 03/23/18 Time of Evaluation: 15:12 - Subjective Subjective: Medicine progress note for Dr. Hanna: Peace, PGY-2 Patient seen and examined at bedside. Pt became acutely agitated yesterday, resident was paged and ativan was given. This am patient is doing well, but is again pleasantly confused. No acute complaints. Objective - Vital Signs/Intake and Output Vital Signs (last 24 hours): Temp Pulse Resp BP Pulse Ox 97.7 F 80 20 104/69 98 03/23/18 12:00 03/23/18 12:00 03/23/18 12:00 03/23/18 12:00 03/23/18 06:00 Intake and Output: 03/23/18 03/23/18 06:59 18:59 Intake Total 120 50 Output Total 0 400 Balance 120 -350 - Medications Medications: Current Medications Acetaminophen (Tylenol 325mg Tab) 650 mg PO Q6H PRN PRN Reason: Fever >100.4 F Last Admin: 03/22/18 23:58 Dose: 650 mg Acetaminophen (Tylenol 325mg Tab) 650 mg PO Q6H PRN PRN Reason: Pain, Mild (1-3) Amlodipine Besylate (Norvasc) 5 mg PO DAILY [facility] Last Admin: 03/23/18 09:11 Dose: 5 mg Aspirin (Aspirin Chewable) 81 mg PO DAILY [facility] Last Admin: 03/23/18 09:11 Dose: 81 mg Aspirin (Ecotrin) 81 mg PO DAILY [facility] Atorvastatin Calcium (Lipitor) 40 mg PO DIN [facility] Last Admin: 03/22/18 18:23 Dose: Not Given Cefpodoxime Proxetil (Vantin) 200 mg PO Q12 [facility] Stop: 03/27/18 13:31 Famotidine (Pepcid) 20 mg PO Q12 [facility] Metoprolol Succinate (Toprol Xl) 25 mg PO DAILY [facility] Non-Formulary Medication (Anoro Ellipta 62.5-25 Mcg Inh) 62.5 inh INH DAILY [facility] Non-Formulary Medication (Calcium 600 + Vit D Tablet) 600 mg PO BID [facility] Non-Formulary Medication (Ferrous Sulfate) 240 mg PO DAILY [facility] Non-Formulary Medication (Namenda Xr) 30 mg PO DAILY [facility] Quetiapine Fumarate (Seroquel) 12.5 mg PO HS PRN; Protocol PRN Reason: Agitation Rivastigmine (Exelon 9.5 Mg/24 Hr Patch) 9.5 patch TD DAILY ABI - Labs Labs: 03/23/18 08:28 03/23/18 08:28 PT 13.8 SECONDS (9.4-12.5) H 03/22/18 06:00 INR 1.20 (0.93-1.08) H 03/22/18 06:00 APTT 26.1 Seconds (25.1-36.5) 03/22/18 06:00 - Constitutional Appears: Well - Head Exam Head Exam: ATRAUMATIC, NORMAL INSPECTION, NORMOCEPHALIC - Eye Exam Eye Exam: EOMI, Normal appearance, PERRL Pupil Exam: NORMAL ACCOMODATION, PERRL - ENT Exam ENT Exam: Mucous Membranes Moist, Normal Exam - Neck Exam Neck Exam: Full ROM, Normal Inspection. absent: Lymphadenopathy - Respiratory Exam Respiratory Exam: Clear to Ausculation Bilateral, NORMAL BREATHING PATTERN - Cardiovascular Exam Cardiovascular Exam: REGULAR RHYTHM, +S1, +S2. absent: Murmur - GI/Abdominal Exam GI & Abdominal Exam: Soft, Normal Bowel Sounds. absent: Tenderness - Extremities Exam Extremities Exam: Full ROM, Normal Capillary Refill, Normal Inspection. absent : Joint Swelling, Pedal Edema - Back Exam Back Exam: NORMAL INSPECTION - Neurological Exam Neurological Exam: Alert, Awake, CN II-XII Intact, Normal Gait. absent: Oriented x3 - Psychiatric Exam Psychiatric exam: Normal Affect, Normal Mood - Skin Skin Exam: Dry, Intact, Normal Color, Warm Assessment and Plan - Assessment and Plan (Free Text) Assessment: 72 y o female PMhx dementia, HTN, COPD, arthritis, TIA 5 y ago, presents to ED with AMS and lethargy, with last known normal 7 PM last night. Code Stroke called in ED. Outpatient MRI revealed 2 small foci of acute infarction in R cerebellar hemisphere, and old lacunar infarction in L cerebellar hemisphere. Pt here for stroke work-up. U/a also demonstrated positive leuk esterase, pt being treated for UTI. Plan: AMS 2/2 to stroke Pt has hx dementia, hx TIA 5 y ago Pt had MRI and EEG done outpatient which showed 2 small foci of acute infarction in R Cerebellar hemisphere Code Stroke called in ED Continue ASA and Lipitor Neurology consulted, f/u recs Fall precautions, neuro checks Heart HEalthy Diet - Follow up ECHO UTI Pos leuk esterase in u/a - will treat emprically with rocephin Monitor vitals, mild temp overnight Hx HTN BP stable C/w amlodipine 5 mg daily Monitor vitals GI ppx: Pepcid bid DVT ppx: SCDs, pharmacologic tx contraindicated <Rolf Hanna - Last Filed: 03/23/18 16:38> Objective - Vital Signs/Intake and Output Vital Signs (last 24 hours): Temp Pulse Resp BP Pulse Ox 97.7 F 80 20 104/69 98 03/23/18 12:00 03/23/18 12:00 03/23/18 12:00 03/23/18 12:00 03/23/18 06:00 Intake and Output: 03/23/18 03/23/18 06:59 18:59 Intake Total 120 50 Output Total 0 400 Balance 120 -350 - Medications Medications: Current Medications Acetaminophen (Tylenol 325mg Tab) 650 mg PO Q6H PRN PRN Reason: Fever >100.4 F Last Admin: 03/22/18 23:58 Dose: 650 mg Acetaminophen (Tylenol 325mg Tab) 650 mg PO Q6H PRN PRN Reason: Pain, Mild (1-3) Amlodipine Besylate (Norvasc) 5 mg PO DAILY [facility] Last Admin: 03/23/18 09:11 Dose: 5 mg Aspirin (Aspirin Chewable) 81 mg PO DAILY [facility] Last Admin: 03/23/18 09:11 Dose: 81 mg Aspirin (Ecotrin) 81 mg PO DAILY [facility] Atorvastatin Calcium (Lipitor) 40 mg PO DIN [facility] Last Admin: 03/22/18 18:23 Dose: Not Given Cefpodoxime Proxetil (Vantin) 200 mg PO Q12 [facility] Stop: 03/27/18 13:31 Famotidine (Pepcid) 20 mg PO Q12 [facility] Ferrous Sulfate (Feosol) 324 mg PO DAILY [facility] Metoprolol Succinate (Toprol Xl) 25 mg PO DAILY [facility] Non-Formulary Medication (Anoro Ellipta 62.5-25 Mcg Inh) 62.5 inh INH DAILY [facility] Non-Formulary Medication (Calcium 600 + Vit D Tablet) 600 mg PO BID [facility] Non-Formulary Medication (Namenda Xr) 30 mg PO DAILY [facility] Quetiapine Fumarate (Seroquel) 12.5 mg PO HS PRN; Protocol PRN Reason: Agitation Rivastigmine (Exelon 9.5 Mg/24 Hr Patch) 9.5 patch TD DAILY ABI - Labs Labs: 03/23/18 08:28 03/23/18 08:28 PT 13.8 SECONDS (9.4-12.5) H 03/22/18 06:00 INR 1.20 (0.93-1.08) H 03/22/18 06:00 APTT 26.1 Seconds (25.1-36.5) 03/22/18 06:00 Attending/Attestation - Attestation I have personally seen and examined this patient.: Yes I have fully participated in the care of the patient.: Yes I have reviewed all pertinent clinical information, including history, physical exam and plan: Yes Notes (Text): 03/23/18 16:35 72 year old female with past medical history of dementia, hypertension and TIA who presented with AMS. Outpatient MRI was positive for 2 small foci of acute infarct in the right cerebellar hemisphere and old lacunar infarction in the left cerebellar hemisphere. CTA head/neck was done which was negative. Neurology evaluation and PT evaluation were appreciated; recommending TREU. Patient is on aspirin and statin. Will resume home medications for dementia. She is on antibiotics for E Coli UTI. Echocardiogram was done today with pending report. Rolf Hanna MD Hospitalist.
[2018-03-23 17:52] VITALS: TEMP 98.5
[2018-03-23] MEDS ORDERED: CALCIUM PO SCH (18:00)
[2018-03-23] MEDS ORDERED: VIT D PO SCH (18:00)
--- NOTE | 2018-03-23 19:37 | CP.PCM.DIS ---
Provider - Provider Date of Admission: 03/21/18 18:06 Attending physician: Rolf Hanna MD [facility] - Lab Results Lab Results: Most Recent Lab Values WBC 6.9 10^3/ul (4.5-11.0) D 03/23/18 08:28 RBC 5.02 10^6/uL (3.5-6.1) 03/23/18 08:28 Hgb 16.1 g/dL (12.0-16.0) H 03/23/18 08:28 Hct 45.7 % (36.0-48.0) 03/23/18 08:28 MCV 91.0 fl (80.0-105.0) 03/23/18 08: MCH 32.1 pg (25.0-35.0) 03/23/18 08: MCHC 35.2 g/dl (31.0-37.0) 03/23/18 08: RDW 13.0 % (11.5-14.5) 03/23/18 08:28 Plt Count 136 10^3/uL (120.0-450.0) 03/23/18 08:28 MPV 9.7 fl (7.0-11.0) 03/23/18 08:28 Gran % 84.2 % (50.0-68.0) H 03/23/18 08:28 Lymph % (Auto) 6.6 % (22.0-35.0) L 03/23/18 08:28 [place] % (Auto) 5.3 % (1.0-6.0) 03/23/18 08:28 Eos % (Auto) 3.8 % (1.5-5.0) 03/23/18 08:28 Baso % (Auto) 0.1 % (0.0-3.0) 03/23/18 08:28 Gran # 5.77 (1.4-6.5) 03/23/18 08:28 Lymph # (Auto) 0.5 (1.2-3.4) L 03/23/18 08:28 Gibson # (Auto) 0.4 (0.1-0.6) 03/23/18 08:28 Eos # (Auto) 0.3 (0.0-0.7) 03/23/18 08:28 Baso # (Auto) 0.01 K/mm3 (0.0-2.0) 03/23/18 08:28 PT 13.8 SECONDS (9.4-12.5) H 03/22/18 06:00 INR 1.20 (0.93-1.08) H 03/22/18 06:00 APTT 26.1 Seconds (25.1-36.5) 03/22/18 06:00 pO2 56 mm/Hg (30-55) H 03/21/18 15:45 VBG pH 7.37 (7.32-7.43) 03/21/18 15:45 VBG pCO2 42.0 (40-60) 03/21/18 15:45 VBG HCO3 24.3 mmol/l (21-28) 03/21/18 15:45 VBG Total CO2 25.6 mmol.L (22-28) 03/21/18 15:45 VBG O2 Sat (Calc) 93.2 % (40-65) H 03/21/18 15:45 VBG Base Excess -1.1 mmol/L (0.0-2.0) L 03/21/18 15:45 VBG Potassium 3.9 mmol/L (3.6-5.2) 03/21/18 15:45 Sodium 146.0 mmol/L (132-148) 03/21/18 15:45 Chloride 115.0 mmol/L (98-107) H 03/21/18 15:45 Glucose 103 mg/dl (65-105) 03/21/18 15:45 Lactate 0.8 mmol/L (0.7-2.1) 03/21/18 15:45 FiO2 21.0 % 03/21/18 15:45 Sodium 143 mmol/L (132-148) 03/23/18 08:28 Potassium 3.6 mmol/L (3.6-5.0) 03/23/18 08:28 Chloride 107 mmol/L (98-107) 03/23/18 08:28 Carbon Dioxide 22 mmol/L (21-33) 03/23/18 08:28 Anion Gap 18 (10-20) 03/23/18 08:28 BUN 14 mg/dL (7-21) 03/23/18 08:28 Creatinine 0.7 mg/dl (0.7-1.2) 03/23/18 08:28 Est GFR ( Amer) > 60 03/23/18 08:28 Est GFR (Non-Af Amer) > 60 03/23/18 08:28 POC Glucose (mg/dL) 92 mg/dL (65-110) 03/23/18 16:20 Random Glucose 103 mg/dL (70-110) 03/23/18 08:28 Hemoglobin A1c 6.0 % (4.2-6.5) 03/21/18 15:45 Calcium 9.1 mg/dL (8.4-10.5) 03/23/18 08:28 Phosphorus 3.8 mg/dL (2.5-4.5) 03/23/18 06:10 Magnesium 2.0 mg/dL (1.7-2.2) 03/23/18 06:10 Total Bilirubin 1.2 mg/dL (0.2-1.3) 03/23/18 08:28 AST 29 U/L (14-36) 03/23/18 08:28 ALT 41 U/L (7-56) 03/23/18 08:28 Alkaline Phosphatase 77 U/L (38-126) 03/23/18 08:28 Lactate Dehydrogenase 633 U/L (333-699) 03/21/18 15:45 Total Creatine Kinase 70 U/L (35-230) 03/21/18 15:45 Troponin I < 0.01 ng/mL 03/21/18 15:45 Total Protein 7.1 g/dL (5.8-8.3) 03/23/18 08:28 Albumin 3.8 g/dL (3.0-4.8) 03/23/18 08:28 Globulin 3.2 gm/dL 03/23/18 08:28 Albumin/Globulin Ratio 1.2 (1.1-1.8) 03/23/18 08:28 Triglycerides 58 mg/dL (35-160) 03/22/18 06:00 Cholesterol 150 mg/dL (130-200) 03/22/18 06:00 LDL Cholesterol Direct 76 mg/dL (0-129) 03/22/18 06:00 HDL Cholesterol 53 mg/dL (29-60) 03/22/18 06:00 Vitamin B12 348 pg/mL (239-931) 03/21/18 20:18 TSH 3rd Generation 0.82 mIU/mL (0.46-4.68) 03/21/18 20:12 Venous Blood Potassium 3.9 mmol/L (3.6-5.2) 03/21/18 15:45 Urine Color Yellow (YELLOW) 03/23/18 06:10 Urine Appearance Clear (CLEAR) 03/23/18 06:10 Urine pH 6.5 (4.7-8.0) 03/23/18 06:10 Ur Specific [place] 1.020 (1.005-1.035) 03/23/18 06:10 Urine Protein Negative mg/dL (<30 mg/dL) 03/23/18 06:10 Urine Glucose (UA) Negative mg/dL (NEGATIVE) 03/23/18 06:10 Urine Ketones Trace mg/dL (NEGATIVE) H 03/23/18 06:10 Urine Blood Negative (NEGATIVE) 03/23/18 06:10 Urine Nitrate Negative (NEGATIVE) 03/23/18 06:10 Urine Bilirubin Negative (NEGATIVE) 03/23/18 06:10 Urine Urobilinogen 0.2 E.U./dL (<1 E.U./dL) 03/23/18 06:10 Ur Leukocyte Esterase Moderate Ino/uL (NEGATIVE) H 03/23/18 06:10 Urine RBC 0 - 2 /hpf (0-2) 03/23/18 06:10 Urine WBC 15 - 20 /hpf (0-6) 03/23/18 06:10 Ur Epithelial Cells 0 - 2 /hpf (0-5) 03/23/18 06:10 Urine Bacteria Rare (NEG) 03/23/18 06:10 Blood Type O NEGATIVE 03/21/18 19:08 Blood Type Confirm O NEGATIVE 03/22/18 06:00 Antibody Screen Negative 03/21/18 19:08 BBK History Checked No verified bt 03/21/18 19:08 Discharge Exam - Head Exam Head Exam: ATRAUMATIC, NORMAL INSPECTION, NORMOCEPHALIC Discharge Plan - Discharge Medications Prescriptions: Cefpodoxime [Vantin] 100 mg PO BID #10 tab - Follow Up Plan Condition: SERIOUS Disposition: REHAB FACILITY/REHAB UNIT Instructions: Stroke (DC), Urinary Tract Infection, Adult (DC) Additional Instructions: Please take meds as prescribed. If symptoms persist, return to emergency department.
[2018-03-23 23:53] VITALS: BP 123/71; PULSE 88; RESP 19; O2SAT 100
--- NOTE | 2018-03-24 08:26 | CARD ---
APPROVED REPORT EXAM: Two-dimensional and M-mode echocardiogram with Doppler and color Doppler. Other Information Quality : AverageRhythm : INDICATION S/P STROKE 2D DIMENSIONS Left Atrium (2D)3.4 (1.6-4.0cm)IVSd0.7 (0.7-1.1cm) LVDd3.1 (3.9-5.9cm)PWd0.9 (0.7-1.1cm) LVDs1.9 (2.5-4.0cm)FS (%) 37.7 % LVEF (%)69.0 (>50%) M-Mode DIMENSIONS Aortic Root3.30 (2.2-3.7cm)Aortic Cusp Exc.1.50 (1.5-2.0cm) Aortic Valve AoV Peak Nnszxsrj209.0cm/sLVOT Peak Cahnzgua791.0cm/sLVOT VTI21.00cm Mitral Valve MV E Ynzamhqh43.0cm/sMV A Cuypeaut562.0cm/sMV [id number] E/A ratio0.6MVA (PHT)2.02cm2 TDI Lateral E' Peak V6.92cm/sMedial E' Peak V5.17cm/sE/Lateral E'10.7 E/Medial E'14.3 Pulmonary Valve PV Peak Qyfrrcfp49.1cm/sPV Peak Grad.2mmHg Tricuspid Valve TR Peak [id number]/sRAP [id number] Peak Gr.21mmHg [id number] LEFT VENTRICLE The left ventricle is normal size. There is normal left ventricular wall thickness. The left ventricular function is normal. The left ventricular ejection fraction is within the normal range. There is normal LV segmental wall motion. RIGHT VENTRICLE The right ventricle is normal size. ATRIA The left atrium size is normal. The right atrium size is normal. The interatrial septum is intact with no evidence for an atrial septal defect. AORTIC VALVE The aortic valve is normal in structure. MITRAL VALVE The mitral valve is moderately thickened but opens well. Mitral annular calcification is mild. Mitral regurgitation is trace. TRICUSPID VALVE The tricuspid valve is normal in structure. There is trace tricuspid regurgitation. PULMONIC VALVE The pulmonic valve is not well visualized. GREAT VESSELS The aortic root is normal in size. PERICARDIAL EFFUSION There is no pericardial effusion. <Conclusion> The left ventricle is normal size. There is normal left ventricular wall thickness. The left ventricular function is normal.
[2018-03-24] MEDS ORDERED: Cefpodoxime (Vantin) 200 mg Tab PO SCH (10:00)
== END 2018-03-24 00:27 | DRG 65 ==
LOC: ED 13:43 → ERH 18:06 → 2RNO 21:04
PROVIDERS: ADMIT Internal Medicine; ATTEND Internal Medicine
DX: I63.9 Cerebral infarction, unspecified (principal); N39.0 Urinary tract infection, site not specified; B96.20 Unspecified Escherichia coli [E. coli] as the cause of diseases classified elsewhere; R29.703 NIHSS score 3; J44.9 Chronic obstructive pulmonary disease, unspecified; I10 Essential (primary) hypertension; Z86.73 Personal history of transient ischemic attack (TIA), and cerebral infarction without residual deficits; Z79.82 Long term (current) use of aspirin; G30.9 Alzheimer's disease, unspecified; F02.80 Dementia in other diseases classified elsewhere, unspecified severity, without behavioral disturbance, psychotic disturbance, mood disturbance, and anxiety